=== PATIENT | male | born 1980 | race Caucasian/White ===

== ENCOUNTER 2018-03-17 18:18 | Emergency (ER) | payer SELFPAY ==
[~2018-03-17] VITALS: Ht 175.3 cm; Wt 63.5 kg
[2018-03-17] MEDS ORDERED: CLINDAMYCIN PHOS 600 MG/ 4 ML VIAL IM ONE (18:45)
[2018-03-17 20:01] VITALS: BP 105/83
== END 2018-03-17 20:20 | disposition home or self-care (01) ==
LOC: ER 18:18
DX: L02.01 Cutaneous abscess of face (principal)
CPT/HCPCS: 99283